=== PATIENT | female | born 1965 | race Caucasian/White ===

== ENCOUNTER 2023-11-16 16:58 | Emergency (ER) | payer BC ==
[~2023-11-16] VITALS: Ht 149.9 cm; Wt 67.1 kg
[2023-11-16 17:07] VITALS: BP 124/75; PULSE 88; RESP 20; TEMP 98.3; O2SAT 96
[2023-11-16 17:33] LABS: BASOPHILS # (AUTO) 0.1 K/uL (0.00-0.22); BASOPHILS % (AUTO) 0.6 % (0.0-2.0); EOSINOPHILS # (AUTO) 0.2 K/uL (0-0.4); EOSINOPHILS % (AUTO) 1.8 % (0.0-4.0); HEMATOCRIT 33.9 % (36-48); HEMOGLOBIN 11.5 g/dL (12.0-16.0); LYMPHOCYTES # (AUTO) 2.9 K/uL (2.5-16.5); MEAN CORPUSCULAR HEMOGLOBIN 30 pg (27-31); MEAN CORPUSCULAR HGB CONC 34 g/dL (33-37); MEAN CORPUSCULAR VOLUME 89.7 fL (80-94); MONOCYTES # (AUTO) 0.8 K/uL (0.8-1.0); MONOCYTES % (AUTO) 8.9 % (1.7-9.3); NEUTROPHILS # (AUTO) 5.5 K/uL (1.8-7.7); NEUTROPHILS % (AUTO) 57.7 % (42.2-75.2); PLATELET COUNT (AUTO) 352 K/uL (140-450); RED BLOOD CELL COUNT(AUTO) 3.78 MIL/uL (4.20-5.40); RED CELL DISTRIBUTION WIDTH 13.9 % (11.6-13.7); WHITE BLOOD COUNT (AUTO) 9.5 K/uL (4.8-10.8)
[2023-11-16] MEDS ORDERED: PRED20TA5 PO (19:23)
[2023-11-16] MEDS ORDERED: VALA1TAB2 PO (19:23)
[2023-11-16 19:35] LABS: ANION GAP 13.7 (8-16); CALCIUM 8.8 mg/dL (8.5-10.1); CARBON DIOXIDE 27.4 mmol/L (21-32); CREATININE 1.2 mg/dL (0.6-1.3); POTASSIUM 4.1 mmol/L (3.5-5.1)
[2023-11-16 19:39] VITALS: BP 129/81; PULSE 84; RESP 14; TEMP 98.7; O2SAT 95
== END 2023-11-16 19:41 | disposition left against medical advice (07) ==
LOC: MED 16:58
DX: G51.0 Bell's palsy (principal); R07.9 Chest pain, unspecified; J45.909 Unspecified asthma, uncomplicated; E11.9 Type 2 diabetes mellitus without complications; I10 Essential (primary) hypertension; Z79.899 Other long term (current) drug therapy
CPT/HCPCS: 36415; 70450; 71045; 80048; 83880; 84484; 85025; 85379; 93005; 99285